=== PATIENT | female | born 1960 | race Caucasian/White ===

== ENCOUNTER 2019-01-20 18:44 | Inpatient (IN) | payer MEDICAID, OTHER ==
[2019-01-20] MEDS: morphine 4 MG/ML VIAL IV ×3 (18:56→22:58)
[2019-01-20] MEDS: ONDANSETRON 4 MG INJ IV ×2 (18:56→19:31)
[2019-01-20] MEDS: SOD CHLORIDE 0.9% 1,000 ML IV (18:57)
[2019-01-20 19:05] LABS: ADD MAN DIFF? NO
[2019-01-20 19:07] LABS: WHITE BLOOD COUNT 5.9 10^3/ul (4.8-10.8)
[2019-01-20 19:07] LABS: BASOPHIL # 0.1 10^3/ul (0.0-0.1); BASOPHILS % 0.8 % (0.0-2.0); EOSINOPHILS # 0.1 10^3/ul (0.0-0.5); EOSINOPHILS % 2.2 % (0.0-7.0); HEMATOCRIT 36.7 % (37.0-47.0); HEMOGLOBIN 12.2 g/dl (12.0-16.0); LYMPHOCYTES # 2.6 10^3/ul (0.8-2.9); LYMPHOCYTES % 43.1 % (15.0-51.0); MEAN CORPUSCULAR HGB CONC 33.2 g/dl (32.0-37.0); MEAN CORPUSCULAR VOLUME 90.2 fl (82.0-101.0); MEAN PLATELET VOLUME 8.5 fl (7.4-10.4); MONOCYTE # 0.5 10^3/ul (0.3-0.9); MONOCYTES % 8.5 % (0.0-11.0); NEUTROPHIL # 2.7 10^3/ul (1.6-7.5); NEUTROPHILS % 45.1 % (39.0-77.0); PLATELET COUNT 418 10^3/UL (140-415); RED BLOOD COUNT 4.07 10^6/ul (4.20-5.40); RED CELL DISTRIBUTION WIDTH 13.2 % (11.5-14.5)
[2019-01-20 19:27] LABS: ANION GAP 6 (5-13); BLOOD UREA NITROGEN 21 mg/dl (7-20); CALCIUM 9.4 mg/dl (8.4-10.2); CARBON DIOXIDE 26 mmol/L (21-31); CHLORIDE 106 mmol/L (97-110); Estimated GFR > 60 mL/min (>60); GLUCOSE 95 mg/dl (70-220); POTASSIUM 3.4 mmol/L (3.5-5.1); SODIUM 138 mmol/L (135-144)
[2019-01-20 19:44] LABS: ADD UMIC YES; UR ASCORBIC ACID 40 mg/dL (NEGATIVE); UR BACTERIA FEW /HPF (NONE SEEN); UR BILIRUBIN (Dip) NEGATIVE (NEGATIVE); UR BLOOD (Dip) NEGATIVE (NEGATIVE); UR CLARITY SLIGHTLY CLOUDY (CLEAR); UR COLOR YELLOW (YELLOW); UR GLUCOSE (Dip) NEGATIVE (NEGATIVE); UR KETONES (Dip) NEGATIVE (NEGATIVE); UR LEUKOCYTE ESTERASE (Dip) 2+ Leu/ul (NEGATIVE); UR MUCUS MODERATE /HPF (NONE SEEN); UR NITRITE (Dip) NEGATIVE (NEGATIVE); UR RBC 2 /HPF (0-5); UR SPECIFIC GRAVITY (Dip) 1.019 (1.003-1.030); UR SQUAMOUS EPITHELIAL CELL FEW /HPF (FEW); UR TOTAL PROTEIN (Dip) NEGATIVE (NEGATIVE); UR UROBILINOGEN (Dip) NEGATIVE (NEGATIVE); UR WBC 7 /HPF (0-5)
[2019-01-20] MEDS: HYDROmorphONE 2 MG/ML SYG IV (20:02)
[2019-01-20] MEDS: KETOROLAC 30 MG INJ IV (20:34)
[2019-01-20] MEDS ORDERED: ACETAMINOPHEN 325 MG TAB PO (21:00)
[2019-01-20] MEDS ORDERED: ONDANSETRON 4 MG INJ IV (21:00)
[2019-01-21] MEDS ORDERED: HYDROCODONE/APAP (5/325) TAB PO
[2019-01-21] MEDS ORDERED: ALBUTEROL/IPRATROPIUM (NEB) 3 ML AMP HHN
[2019-01-21] MEDS ORDERED: NACL 0.9% 3 ML SYG IV
[2019-01-21] MEDS ORDERED: ONDANSETRON 4 MG INJ IV
[2019-01-21] MEDS: CEFTRIAXONE 1 GM/50 ML (PMX) 50 ML IVPB ×2 (01:21→23:54)
[2019-01-21] MEDS: SOD CHLORIDE 0.9% 1,000 ML IV ×3 (01:21→21:42)
[2019-01-21] MEDS: TAMSULOSIN (SR) 0.4 MG CAP PO (01:27)
[2019-01-21] MEDS: HYDROCODONE/APAP (5/325) TAB PO (01:37)
[2019-01-21] MEDS: POTASSIUM CHLORIDE (SR) 20 MEQ TAB PO (02:02)
[2019-01-21 05:00] LABS: ADD MAN DIFF? NO
[2019-01-21 05:07] LABS: WHITE BLOOD COUNT 7.2 10^3/ul (4.8-10.8)
[2019-01-21 05:07] LABS: BASOPHILS % 0.3 % (0.0-2.0); EOSINOPHILS % 0.1 % (0.0-7.0); HEMATOCRIT 33.2 % (37.0-47.0); HEMOGLOBIN 10.9 g/dl (12.0-16.0); LYMPHOCYTES # 1.2 10^3/ul (0.8-2.9); LYMPHOCYTES % 17.2 % (15.0-51.0); MEAN CORPUSCULAR HGB CONC 32.8 g/dl (32.0-37.0); MEAN CORPUSCULAR VOLUME 91.5 fl (82.0-101.0); MEAN PLATELET VOLUME 8.7 fl (7.4-10.4); MONOCYTE # 0.4 10^3/ul (0.3-0.9); MONOCYTES % 4.9 % (0.0-11.0); NEUTROPHIL # 5.6 10^3/ul (1.6-7.5); NEUTROPHILS % 77.1 % (39.0-77.0); PLATELET COUNT 362 10^3/UL (140-415); RED BLOOD COUNT 3.63 10^6/ul (4.20-5.40); RED CELL DISTRIBUTION WIDTH 13.2 % (11.5-14.5)
[2019-01-21 05:41] LABS: ALANINE AMINOTRANSFERASE 21 IU/L (13-69); ALBUMIN 3.2 g/dl (3.3-4.9); ALKALINE PHOSPHATASE 80 IU/L (42-121); ANION GAP 4 (5-13); ASPARTATE AMINO TRANSFERASE 17 IU/L (15-46); BILIRUBIN,INDIRECT 0.3 mg/dl (0-1.1); BILIRUBIN,TOTAL 0.3 mg/dl (0.2-1.3); BLOOD UREA NITROGEN 18 mg/dl (7-20); CALCIUM 8.7 mg/dl (8.4-10.2); CARBON DIOXIDE 25 mmol/L (21-31); CHLORIDE 112 mmol/L (97-110); CREATININE 0.56 mg/dl (0.44-1.00); Estimated GFR > 60 mL/min (>60); GLUCOSE 109 mg/dl (70-220); MAGNESIUM 1.9 mg/dl (1.7-2.5); PHOSPHORUS 4.2 mg/dl (2.5-4.9); POTASSIUM 4.6 mmol/L (3.5-5.1); SODIUM 141 mmol/L (135-144); TOTAL PROTEIN 6.1 g/dl (6.1-8.1)
[2019-01-21 17:52] LABS: INR 0.96; PARTIAL THROMBOPLASTIN TIME 28.4 Sec (23.0-35.0); PROTIME 12.9 Sec (11.9-14.9)
[2019-01-22 05:15] LABS: ADD MAN DIFF? NO
[2019-01-22 05:29] LABS: BASOPHILS % 0.6 % (0.0-2.0); EOSINOPHILS # 0.1 10^3/ul (0.0-0.5); EOSINOPHILS % 1.4 % (0.0-7.0); HEMATOCRIT 32.9 % (37.0-47.0); HEMOGLOBIN 10.9 g/dl (12.0-16.0); LYMPHOCYTES # 1.9 10^3/ul (0.8-2.9); LYMPHOCYTES % 39.5 % (15.0-51.0); MEAN CORPUSCULAR HEMOGLOBIN 30.2 pg (29.0-33.0); MEAN CORPUSCULAR HGB CONC 33.1 g/dl (32.0-37.0); MEAN CORPUSCULAR VOLUME 91.1 fl (82.0-101.0); MONOCYTE # 0.3 10^3/ul (0.3-0.9); MONOCYTES % 6.6 % (0.0-11.0); NEUTROPHIL # 2.5 10^3/ul (1.6-7.5); NEUTROPHILS % 51.3 % (39.0-77.0); PLATELET COUNT 346 10^3/UL (140-415); RED BLOOD COUNT 3.61 10^6/ul (4.20-5.40); RED CELL DISTRIBUTION WIDTH 13.4 % (11.5-14.5)
[2019-01-22 05:29] LABS: WHITE BLOOD COUNT 4.8 10^3/ul (4.8-10.8)
[2019-01-22] MEDS: SOD CHLORIDE 0.9% 1,000 ML IV ×3 (05:31→22:50)
[2019-01-22 05:56] LABS: ANION GAP 6 (5-13); BLOOD UREA NITROGEN 13 mg/dl (7-20); CALCIUM 8.8 mg/dl (8.4-10.2); CARBON DIOXIDE 25 mmol/L (21-31); CHLORIDE 110 mmol/L (97-110); CREATININE 0.54 mg/dl (0.44-1.00); Estimated GFR > 60 mL/min (>60); GLUCOSE 91 mg/dl (70-220); SODIUM 141 mmol/L (135-144)
[2019-01-22] MEDS ORDERED: OXYCODONE/ACETAMINOPHEN (5/325) TAB PO ×2 (09:30)
[2019-01-22] MEDS ORDERED: ALBUTEROL 0.083% (NEB) 2.5 MG/3 ML AMP HHN (09:30)
[2019-01-22] MEDS ORDERED: ONDANSETRON 4 MG INJ IV (09:30)
[2019-01-22] MEDS ORDERED: MIDAZOLAM 1 MG/ML 2 ML INJ IV (09:30)
[2019-01-22] MEDS ORDERED: FENTAnyl 50 MCG/ML VIAL IV ×3 (09:30)
[2019-01-22] MEDS ORDERED: MEPERIDINE 25 MG INJ IV (09:30)
[2019-01-22] MEDS ORDERED: PROPOFOL 20 ML (12:22)
[2019-01-22] MEDS ORDERED: MIDAZOLAM 1 MG/ML 2 ML INJ (12:22)
[2019-01-22] MEDS ORDERED: LIDOCAINE 2% (SDV) 5 ML INJ (12:22)
[2019-01-22] MEDS ORDERED: FENTAnyl 50 MCG/ML VIAL (12:22)
[2019-01-22] MEDS ORDERED: CEFAZOLIN 1 GM INJ (12:48)
[2019-01-22] MEDS ORDERED: ONDANSETRON 4 MG INJ (12:56)
[2019-01-22] MEDS ORDERED: DEXAMETHASONE 4 MG/ML 5 ML INJ (12:57)
[2019-01-22] MEDS: ACETAMINOPHEN 325 MG TAB PO (15:42)
[2019-01-22] MEDS: CEFTRIAXONE 1 GM/50 ML (PMX) 50 ML IVPB (23:49)
[2019-01-23] MEDS: HYDROCODONE/APAP (5/325) TAB PO (00:43)
[2019-01-23] MEDS: ACETAMINOPHEN 325 MG TAB PO (05:39)
[2019-01-23] MEDS: SOD CHLORIDE 0.9% 1,000 ML IV (09:33)
== END 2019-01-23 14:44 | disposition home or self-care (01) | DRG 694 ==
LOC: E/R 18:44 → MS1 21:21
PROC: 0T777DZ Dilation of Left Ureter with Intraluminal Device, Via Natural or Artificial Opening (ICD-10-PCS; principal; 2019-01-22 12:30)
DX: N13.2 Hydronephrosis with renal and ureteral calculous obstruction (principal); Z97.5 Presence of (intrauterine) contraceptive device; Z72.0 Tobacco use; N39.0 Urinary tract infection, site not specified
CPT/HCPCS: 36415; 71045; 74176; 74430; 80048; 80053; 81001; 83735; 84100; 85025; 85610; 85730; 87086; 93005; 96374; 96375; 96376; 99285-25